=== PATIENT | female | born 1960 | race African-American/Black ===

== ENCOUNTER 2017-11-01 14:58 | Emergency (ER) | payer BC, OTHER ==
[~2017-11-01] VITALS: Ht 167.6 cm; Wt 78.9 kg
[~2017-11-01 14:58] MED LIST: BACTRIM DS TAB1 EACH PO; CODEINE-GUAIFE473 M1 PO; DESYREL100 MG PO; K-DUR10 MEQ PO; MAXZIDE-25 TABL1 TA1 PO; MEDROLDOSEPACK PO; NEXIUM 40 MG CA40 M1 PO; NEXIUM40 MG PO; NORCO 5-325 TA1 EACH PO; NORFLEX100 MG PO; TESSALON200 MG PO; TRAZODONE 50 MG50 M1 OR; ZANTAC 150MG T150 M1 PO; ZPAK PO
[2017-11-01] MEDS ORDERED: NORVASC5 MG PO (15:19)
[2017-11-01] MEDS ORDERED: NORFLEX100 MG PO (15:30)
[2017-11-01] MEDS ORDERED: NAPROSYN500 MG PO (15:30)
[2017-11-01] MEDS ORDERED: ULTRAM 50MG TAB50 MG PO (15:30)
== END 2017-11-01 15:40 | disposition home or self-care (01) ==
LOC: ER 14:58
DX: S16.1XXA Strain of muscle, fascia and tendon at neck level, initial encounter (principal); S39.012A Strain of muscle, fascia and tendon of lower back, initial encounter; M54.16 Radiculopathy, lumbar region; I10 Essential (primary) hypertension; F17.210 Nicotine dependence, cigarettes, uncomplicated; Z90.49 Acquired absence of other specified parts of digestive tract; Z90.710 Acquired absence of both cervix and uterus; Z88.6 Allergy status to analgesic agent; V89.2XXA Person injured in unspecified motor-vehicle accident, traffic, initial encounter; Y93.89 Activity, other specified; Y92.89 Other specified places as the place of occurrence of the external cause; Y99.8 Other external cause status